=== PATIENT | male | born 1985 | race Caucasian/White ===

== ENCOUNTER 2016-11-24 13:22 | Emergency (ER) | payer SELFPAY ==
[~2016-11-24] VITALS: Ht 185.4 cm; Wt 181.4 kg
[2016-11-24 14:01] LABS: BASOPHILS # (AUTO) 0.1 K/uL (0.0-8.0); BASOPHILS % (AUTO) 0.8 % (0.0-2.0); EOSINOPHILS # (AUTO) 0.2 K/uL (0.0-0.7); EOSINOPHILS % (AUTO) 2.4 % (0.0-7.0); HEMATOCRIT 49.5 % (40-50); HEMOGLOBIN 15.9 G/DL (14.0-18.0); LYMPHOCYTES # (AUTO) 2.1 K/UL (0.8-4.8); LYMPHOCYTES % (AUTO) 29.3 % (20.5-51.5); MEAN CORPUSCULAR HEMOGLOBIN 28.4 UUG (27.0-31.0); MEAN CORPUSCULAR HGB CONC 32 g/dL (32.0-37.0); MEAN CORPUSCULAR VOLUME 88.3 FL (82.0-92.0); MONOCYTES # (AUTO) 0.6 K/UL (0.1-1.30); MONOCYTES % (AUTO) 8.4 % (0.0-11.0); NEUTROPHILS # (AUTO) 4.2 K/UL (1.8-8.9); NEUTROPHILS % (AUTO) 59.1 % (38.5-71.5); PLATELET COUNT (AUTO) 168 K/UL (150-450); WHITE BLOOD COUNT (AUTO) 7.3 K/UL (4.0-11.2)
[2016-11-24 14:14] LABS: CREATININE 0.9 mg/dL (0.6-1.3)
[2016-11-24 14:19] LABS: BILIRUBIN,DIRECT 0.1 mg/dL (0.0-0.2); BILIRUBIN,TOTAL 0.3 mg/dL (0.2-1.0); TOTAL PROTEIN, SERUM 7.2 g/dL (6.4-8.2)
--- NOTE | 2016-11-24 14:53 | NUR ---
PATIENT WAS SEEN BY MD FOR C/O ABDOMINAL PAIN. MEDS GIVEN ORDERED. CT DONE. PATIENT STATED HE STILL HAS PAIN AFTER FIRST DILAUDID, PER MD, I GAVE HIM ANOTHER 1 MG ABOUT 35 MINUTES AFTER THE FIRST ONE.
--- NOTE | 2016-11-24 15:26 | NUR ---
PATIENT STATES PAIN HAS DIMINISHED. DC, RX AND FOLLOW UP INSTRUCTIONS GIVEN AND EXPLAINED TO PATIENT WHO STATES HE UNDERSTANDS ALL INSTRUCTIONS. PATIENT'S "BOSS" HERE TO DRIVE HIM HOME. PATIENT AWARE OF DILAUDID PRECAUTIONS STATED
== END 2016-11-24 15:45 | disposition home or self-care (01) ==
LOC: ER 13:22
DX: R10.31 Right lower quadrant pain (principal); R19.7 Diarrhea, unspecified
CPT/HCPCS: 36415; 71010; 83690; 85025; A4663; J1170; J2405